=== PATIENT | female | born 1940 | race Caucasian/White ===

== ENCOUNTER 2018-12-14 09:30 | Inpatient (IN) | payer MEDICARE, BC ==
[2018-12-13 12:37] VITALS: Ht 153.7 cm; Wt 47.7 kg
[~2018-12-14] VITALS: Ht 153.7 cm; Wt 47.7 kg
[2018-12-14] VITALS (30 sets, daily range): BP systolic 133–167; BP diastolic 71–88; PULSE 63–94; RESP 0–27
[~2018-12-14 09:30] MED LIST: LACTATED RINGER'S 1,000 ML IV* SCH; VANCOMYCIN 1 GM (PMX) 250 ML IVPB ONE
[2018-12-14] MEDS ORDERED: DOCU-144 PO (10:23)
[2018-12-14] MEDS ORDERED: ATOR10TA65 PO (10:24)
[2018-12-14] MEDS ORDERED: ESOM10SU PO (10:25)
[2018-12-14] MEDS ORDERED: LORA1TAB PO (10:26)
[2018-12-14] MEDS ORDERED: ABCC1C PO (10:26)
[2018-12-14] MEDS ORDERED: PROP20TA4 PO (10:27)
--- NOTE | 2018-12-14 10:45 | PREAC ---
Date/Time of Note Date/Time of Note DATE: 12/14/18 TIME: 10:42 Anesthesia Eval and Record Evaluation Time Pre-Procedure Interview DATE: 12/14/18 TIME: 10:42 Age 78 Sex female NPO: 8 hrs Preoperative diagnosis l4 to S1 right side decompression and discectomy Planned procedure l4 to S1 right side decompression and discectomy Past Medical History Past Medical History: Includes Cardio: HTN, Dyslipidemia GI: GERD Psych: Anxiety Surgery & Anesthesia Issues No known issue Meds Anticoagulation: No Beta Joseline within 24 hr: Yes Reported Medications Propranolol Hcl* (Propranolol Hcl*) 20 Mg Tablet, 20 MG PO BID, TAB 12/14/18 Xblsxollcfqju-Hmvdtjperj-Splpedsb-Codeine* (Fioricet w/Codeine*) [id number] Cap, 1 CAP PO Q4H PRN for HEADACHE, CAP 12/14/18 Lorazepam* (Lorazepam*) 1 Mg Tablet, 1 MG PO DAILY PRN for ANXIETY, #30 TAB 12/14/18 Esomeprazole Mag Trihydrate (Nexium Packet) 10 Mg Suspdr.pkt, 10 MG PO DAILY, #30 PACKET 12/14/18 Atorvastatin Calcium (Atorvastatin Calcium) 10 Mg Tablet, 10 MG PO QHS, #30 TAB 12/14/18 Docusate Sodium* (Colace*) 100 Mg Capsule, 100 MG PO BID PRN for CONSTIPATION, #60 CAP 12/14/18 Discontinued Reported Medications Sennosides* (Senna Lax*) Unknown Strength Tablet, PO DAILY, TAB 12/13/18 Unexhqivsv-Wwgxgghtkzhkq-Gkkfaetm* (Fioricet*) 50-300-40 Mg Capsule, 1 CAP PO Q4H PRN for MIGRAINES, CAP 12/13/18 Esomeprazole Mag Trihydrate (Nexium) Unknown Strength Capsule.dr, PO DAILY, #30 CAP 12/13/18 Simvastatin* (Zocor*) 40 Mg Tablet, 40 MG PO DAILY 10/09/12 Ranitidine Hcl* (Zantac*) 300 Mg Tab, 300 MG PO BID 10/09/12 Propranolol Hcl* (Inderal*) 20 Mg Tab, 20 MG PO BID 10/09/12 Current Medications Lactated Ringer's 1,000 ml @ 0 mls/hr Q0M IV* ; Start 12/14/18 at 08:00; Stop 12/14/18 at 16:00 Meds reviewed: Yes Allergies Coded Allergies: Penicillins (Verified Allergy, Severe, RASH HIVES DIFFCULTY BREATHING , 12/14/18) benzalkonium chloride (Verified Allergy, Unknown, 12/13/18) codeine (Verified Allergy, Unknown, 12/13/18) gramicidin D (Verified Allergy, Unknown, 12/13/18) morphine (Verified Allergy, Unknown, 12/13/18) neomycin sulfate (Verified Allergy, Unknown, 12/13/18) polymyxin B (Verified Allergy, Unknown, 12/13/18) polymyxin B sulfate (Verified Allergy, Unknown, 12/13/18) aspirin (Verified Adverse Reaction, Unknown, 12/13/18) Allergies Reviewed: Yes Labs/Studies Labs Reviewed: Reviewed by anesthesiologist test: N/A Pre-procedure Exam Last vitals Vital Signs Date Temp Pulse Resp B/P (MAP) Pulse Ox O2 O2 Flow FiO2 Time Delivery Rate 12/14/18 98.0 63 16 162/71 100 Room Air 10:22 (101) Airway: Adequate mouth opening, Adequate thyromental dist Mallampati: Mallampati IV Teeth: Normal Lung: Normal Heart: Normal ASA Physical Status ASA physical status: 3 Emergency: None Pre-operative Attestations Prior to commencing anesthesia and surgery, the patient was re-evaluated, there was verification of: *The patient's identity *The results of appropriate recent lab work and preoperative vital signs *The above evaluation not changing prior to induction *Anesthetic plan, risk benefits, alternative and complications discussed with patient/family; questions answered; patient/family understands, accepts and wishes to proceed. MORENO THORNTON DO Dec 14, 2018 10:45
[2018-12-14] MEDS ORDERED: MIDAZOLAM 1 MG/ML 2 ML INJ ONE (10:46)
[2018-12-14] MEDS ORDERED: ROCURONIUM 50 MG INJ ONE (10:46)
[2018-12-14] MEDS ORDERED: ETOMIDATE 20 MG INJ ONE (10:46)
[2018-12-14] MEDS ORDERED: LIDOCAINE 2% (SDV) 5 ML INJ ONE (10:46)
[2018-12-14] MEDS ORDERED: SUCCINYLCHOLINE CHLORIDE 100 MG/5 ML SYG IV ONE (10:46)
[2018-12-14] MEDS ORDERED: hydrALAzine 20 MG INJ IV PRN (11:00)
[2018-12-14] MEDS ORDERED: LABETALOL HCL 20MG INJ IV PRN (11:00)
[2018-12-14] MEDS ORDERED: ONDANSETRON 4 MG INJ IV PRN (11:00)
[2018-12-14] MEDS ORDERED: MEPERIDINE 25 MG INJ IV PRN (11:00)
[2018-12-14] MEDS ORDERED: HYDROmorphONE 1 MG/5 ML IV SYRINGE IV PRN (11:00)
--- NOTE | 2018-12-14 11:18 | HPN ---
Date/Time of Note Date/Time of Note DATE: 12/14/18 TIME: 11:18 Interval H&P Admission Note Pt. seen H&P reviewed: No system changes KIERA LOGAN MD Dec 14, 2018 11:18
--- NOTE | 2018-12-14 11:25 | PAC ---
Date/Time of Note Date/Time of Note DATE: 12/14/18 TIME: 11:24 Post-Anesthesia Notes Post-Anesthesia Note Last documented vital signs Vital Signs Date Temp Pulse Resp B/P (MAP) Pulse Ox O2 O2 Flow FiO2 Time Delivery Rate 12/14/18 98.4 75 18 113/65 100 Room Air 1125 Activity: WNL Respiratory function: WNL Cardiovascular function: WNL Mental status: Baseline Pain reasonably controlled: Yes Hydration appropriate: Yes Nausea/Vomiting absent: Yes MORENO THORNTON DO Dec 14, 2018 11:25
[2018-12-14] MEDS ORDERED: SURGIFOAM POWDER 1 GM KIT ONE (11:47)
[2018-12-14] MEDS ORDERED: BUPIVACAINE 0.5%/EPI (SDV) 30 ML INJ ONE (11:47)
[2018-12-14] MEDS ORDERED: THROMBIN (BOVINE) 5,000 UNIT VIAL TP ONE (11:47)
[2018-12-14] MEDS ORDERED: CA CHLORIDE 10% 10 ML SYRINGE ONE (11:48)
[2018-12-14] MEDS ORDERED: HEPARIN 1000 UNITS/ML 10 ML INJ ONE (11:48)
[2018-12-14] MEDS ORDERED: VANCOMYCIN 1 GM INJ ONE (11:49)
[2018-12-14] MEDS ORDERED: DIPHENHYDRAMINE 25 MG CAP PO PRN (12:00)
[2018-12-14] MEDS ORDERED: BISACODYL 10 MG SUPP PR PRN (12:00)
[2018-12-14] MEDS ORDERED: NALOXONE (0.4 MG/ML) INJ IV PRN (12:00)
[2018-12-14] MEDS ORDERED: CEPASTAT LOZENGE MT PRN (12:00)
[2018-12-14] MEDS ORDERED: traMADol 50 MG TAB PO PRN (12:00)
[2018-12-14] MEDS ORDERED: AL HYDROX/MG HYDROX/SIMETH 30 ML CUP PO PRN (12:00)
[2018-12-14] MEDS ORDERED: MEPERIDINE 25 MG INJ IM PRN ×2 (12:00→13:04)
[2018-12-14] MEDS ORDERED: DIPHENHYDRAMINE 50 MG INJ IV PRN (12:00)
[2018-12-14] MEDS ORDERED: DEXAMETHASONE 4 MG/ML 5 ML INJ ONE (14:00)
[2018-12-14] MEDS ORDERED: ONDANSETRON 4 MG INJ ONE (14:00)
--- NOTE | 2018-12-14 14:43 | HPN ---
Date/Time of Note Date/Time of Note DATE: 12/14/18 TIME: 14:43 Interval H&P Admission Note Pt. seen H&P reviewed: No system changes KIERA LOGAN MD Dec 14, 2018 14:43
--- NOTE | 2018-12-14 14:45 | SIPON ---
Date/Time of Note Date/Time of Note DATE: 12/14/18 TIME: 14:43 Operative Report Preoperative Diagnosis Lumbar stenosis Postoperative Diagnosis Lumbar stenosis Operation/Procedure Performed Lumbar decompression Surgeon see signature line shipping assistant Veronika george Anesthesia: general Estimated blood loss: 10 - 50 ml's Transfusion Required none Specimen Disc Grafts/Implants none Complications none KIERA LOGAN MD Dec 14, 2018 14:45
--- NOTE | 2018-12-14 14:53 | PAC ---
Date/Time of Note Date/Time of Note DATE: 12/14/18 TIME: 14:52 Post-Anesthesia Notes Post-Anesthesia Note Last documented vital signs Vital Signs Date Temp Pulse Resp B/P (MAP) Pulse Ox O2 O2 Flow FiO2 Time Delivery Rate 12/14/18 98.5 80 18 130/65 100 1452 12/14/18 63 16 162/71 100 Room Air 10:22 (101) Activity: WNL Respiratory function: WNL Cardiovascular function: WNL Mental status: Baseline Pain reasonably controlled: Yes Hydration appropriate: Yes Nausea/Vomiting absent: Yes MORENO THORNTON DO Dec 14, 2018 14:53
[2018-12-14] MEDS: HYDROmorphONE 1 MG/5 ML IV SYRINGE IV PRN ×2 (15:25→15:40)
[2018-12-14] MEDS ORDERED: hydrALAzine 20 MG INJ ONE (15:32)
--- NOTE | 2018-12-14 15:56 | OPR ---
DATE OF OPERATION: 12/14/2018 PREOPERATIVE DIAGNOSES: 1. Degenerative scoliosis. 2. Right L4 to L5 and L5 to S1 stenosis. 3. Right paracentral herniation at L4 to L5. 4. Right far lateral herniation at L4 to L5. 5. Right L4 foraminal stenosis. 6. Radiculopathy. POSTOPERATIVE DIAGNOSES: 1. Degenerative scoliosis. 2. Right L4 to L5 and L5 to S1 stenosis. 3. Right paracentral herniation at L4 to L5. 4. Right far lateral herniation at L4 to L5. 5. Right L4 foraminal stenosis. 6. Radiculopathy. PROCEDURES: 1. Right L4 to L5 and L5 to S1 decompression with decompression of L4, L5, S1 nerve roots. 2. Right L4 to L5 lumbar microdiskectomy. 3. Right L4 to L5 extraforaminal lumbar microdiskectomy. 4. Right L4 extraforaminal decompression with Baxano. 5. Use of operative microscope. 6. Use of C-arm fluoroscopy with interpretation without radiologist present. 7. Intraoperative neuromonitoring. PRIMARY SURGEON: Stevie Umanzor MD SLOT SHIFT MANAGER: BRISEIDA Zavala FINDINGS: Neuromonitoring at the start of the case revealed right L5 amplitude down 30%, right S1 do wn 20%. At the end of the case, nerve signals returned to normal. The patient had stenosis at L4 to L5 and L5 to S1. There was a paracentral herniation at L4 to L5 and large far lateral extrusion at L4 to L5. There is also foraminal stenosis due to degenerative scoliosis. ESTIMATED BLOOD LOSS: 50 mL. DRAINS: None. SPECIMENS: L4 to L5 disk. COMPLICATIONS OF PROCEDURES: None. ANESTHESIOLOGIST: Tank Carrizales DO TYPE OF ANESTHESIA: General. INDICATIONS FOR PROCEDURE: This is an 78-year-old female with degenerative lumbar scoliosis with petey nosis. She failed nonoperative measures; therefore I recommended that she undergo the above procedur e due to her radicular complaints. She failed nonoperative measures and wished to proceed with the a louie surgery. DESCRIPTION OF PROCEDURE IN DETAIL: The patient was identified in the preoperative holding area, giv en vancomycin antibiotic, taken to the operating room, where she was successfully placed under genera l anesthesia. Neuromonitoring were placed. Sequential devices were applied. Remote intraoperative neuromonitoring was performed by Dr. Bennett from 11:26 until 14:40 to include SSEP, MEP and EMG pe rformed by [employer]. The patient was placed in the operative table in prone position over a Marlon frame. All bony prominences were well padded. The back was then prepped and draped in usual fashion. Using the sterile fluoroscope, I identified the incision site. I anesthetized skin with Ma rcaine and epinephrine. Incision was then made over the L4 to L5 and L5 to S1 levels. Incision was taken down to dorsal fascia, which was incised with Bovie cautery. I then subperiosteally dissected the right L4, L5 and S1 lamina. I confirmed the levels with the C-arm fluoroscopy. Microscope was t hen brought in. I performed a right L4 hemilaminotomy and a right L5 hemilaminectomy. I removed the ligamentum flavum. I decompressed the canal as well as the right L4, L5 and S1 nerve roots. At L4 to L5, my cosmetic sales assistant retracted neural elements medially. I performed an annulotomy followed by diskec cristina. The patient had a central and paracentral herniation. I then performed an extraforaminal disk ectomy as the patient had a large extraforaminal component which was removed. I then utilized the MENA360 10 mm shaver under C-arm guidance with neuromonitoring to complete the right extraforaminal deco mpression of the L4 nerve root. Once this was done, all nerve signals returned to normal. The L4 si gnal even had cleaner and trimmer signals. I then irrigated the wound. Hemostasis was achieved with Surgifoam a nd bipolar cautery. Wound was dry and therefore, I elected not to place a drain. The retractors wer e removed. I closed deep fascia with #1 Vicryl stitch. I closed subcutaneous tissue with 2-0 Vicryl suture. A 4-0 Monocryl closure was then performed. Dermabond and sterile dressings were then appli ed. The patient was awakened from anesthesia and taken to the recovery room in stable condition. La p, sponge and instrument counts were correct x2. There were no apparent complications during the pro cedure. The patient will be admitted to the [facility] for routine postoperative care to include pain co ntrol, neurovascular checks, antibiotics and physical therapy. Dictated By: STEVIE LAZO/ALLAN Conf#: [id number] DID#: [id number] CC: LATRELL HARRELL MD;*EndCC*
[2018-12-14] MEDS ORDERED: FENTAnyl 50 MCG/ML VIAL ONE (17:04)
[2018-12-14] MEDS: MEPERIDINE 50 MG INJ IM PRN ×2 (17:10→21:14)
[2018-12-14] MEDS: D5W-0.45 NACL + KCL 20 MEQ 1,000 ML IV SCH ×2 (17:11→21:31)
[2018-12-14] MEDS ORDERED: ESOMEPRAZOLE MAG TRIHYDRATE 10 MG PO SCH (18:00)
--- NOTE | 2018-12-14 18:03 | CONS ---
Assessment/Plan Assessment/Plan Assessment/Plan (Daily) Consult dict 1- post op lumbar back surg 2- hx hyperlipidemia, statin cont 3- hx migraine crawford, will cont beta joie 4- hx peptic ulcer dz, ppi cont Will follow Consultation Date/Type/Reason Admit Date/Time Dec 14, 2018 at 09:37 Date/Time of Note DATE: 12/14/18 TIME: 18:02 Past Medical History Home Meds Reported Medications Propranolol Hcl* (Propranolol Hcl*) 20 Mg Tablet, 20 MG PO BID, TAB 12/14/18 Uajzipmveuoym-Xnqkkrzvjc-Tuhajfcd-Codeine* (Fioricet w/Codeine*) [id number]-30MG Cap, 1 CAP PO Q4H PRN for HEADACHE, CAP 12/14/18 Lorazepam* (Lorazepam*) 1 Mg Tablet, 1 MG PO DAILY PRN for ANXIETY, #30 TAB 12/14/18 Esomeprazole Mag Trihydrate (Nexium Packet) 10 Mg Suspdr.pkt, 10 MG PO DAILY, #30 PACKET 12/14/18 Atorvastatin Calcium (Atorvastatin Calcium) 10 Mg Tablet, 10 MG PO QHS, #30 TAB 12/14/18 Docusate Sodium* (Colace*) 100 Mg Capsule, 100 MG PO BID PRN for CONSTIPATION, #60 CAP 12/14/18 Discontinued Reported Medications Sennosides* (Senna Lax*) Unknown Strength Tablet, PO DAILY, TAB 12/13/18 Dzkirvyfbd-Tlokqqfsqodiv-Vmpkkxln* (Fioricet*) 50-300-40 Mg Capsule, 1 CAP PO Q4H PRN for MIGRAINES, CAP 12/13/18 Esomeprazole Mag Trihydrate (Nexium) Unknown Strength Capsule.dr, PO DAILY, #30 CAP 12/13/18 Simvastatin* (Zocor*) 40 Mg Tablet, 40 MG PO DAILY 10/09/12 Ranitidine Hcl* (Zantac*) 300 Mg Tab, 300 MG PO BID 10/09/12 Propranolol Hcl* (Inderal*) 20 Mg Tab, 20 MG PO BID 10/09/12 Medications Current Medications Hydromorphone HCl (Dilaudid) 0.2 mg PACU PRN IV MILD PAIN 1-3 Last administered on 12/14/18at 16:09; Admin Dose 0.2 MG; Start 12/14/18 at 11:00; Stop 12/14/18 at 1 9:00 Hydromorphone HCl (Dilaudid) 0.4 mg PACU PRN IV MOD PAIN 4-6 Last administered on 12/14/18at 15:40; Admin Dose 0.4 MG; Start 12/14/18 at 11:00; Stop 12/14/18 at 19:00 Ondansetron HCl (Zofran Inj) 4 mg PACU ORDER PRN IV NAUSEA/VOMITING Last administered on 12/14/18at 15:07; Admin Dose 4 MG; Start 12/14/18 at 11:00 Labetalol HCl (Labetalol) 5 mg PACU ORDER PRN IV HIGH BLOOD PRESSURE; Start 12/14/18 at 11:00; Stop 12/14/18 at 19:00 Hydralazine HCl (Apresoline) 5 mg PACU ORDER PRN IV HIGH BLOOD PRESSURE; Start 12/14/18 at 11:00; Stop 12/14/18 at 19:00 Meperidine HCl (Demerol) 25 mg PACU ORDER PRN IV .RIGORS; Start 12/14/18 at 11:00; Stop 12/14/18 at 19:00 Potassium Chloride/Dextrose/ Sod Cl 1,000 ml @ 100 mls/hr Q10H IV Last administered on 12/14/18at 17:11; Admin Dose 100 MLS/HR; Start 12/14/18 at 11:31 Tramadol HCl (Ultram) 50 mg Q4H PRN PO .PAIN 1-5; Start 12/14/18 at 12:00 Tramadol HCl (Ultram) 100 mg Q4H PRN PO .PAIN 6-10; Start 12/14/18 at 12:00 Vancomycin HCl 250 ml @ 125 mls/hr Q12H IVPB ; Start 12/14/18 at 18:00; Stop 12/15/18 at 07:59 Ondansetron HCl (Zofran Inj) 4 mg Q6H PRN IV NAUSEA/VOMITING; Start 12/14/18 at 12:00 Bisacodyl (Dulcolax Supp) 10 mg DAILY PRN [place] .CONSTIPATION; Start 12/14/18 at 12:00 Docusate Sodium (Colace) 100 mg BID PO ; Start 12/14/18 at 21:00 Al Hydrox/Mg Hydrox/Simethicone (Mag-Al Plus) 15 ml Q6H PRN PO .CONSTIPATION/DYSPEPSIA; Start 12/14/18 at 12:00 Acetaminophen (Tylenol Tab) 650 mg Q4H PRN PO CRAWFORD OR TEMP GREATER THAN 101.3F; Start 12/14/18 at 12:00 Phenol (Cepastat Lozenge) 1 lozenge PRN PRN [place] .SORE THROAT; Start 12/14/18 at 12:00 Diphenhydramine HCl (Benadryl) 25 mg Q6H PRN PO .ITCHING; Start 12/14/18 at 12:00 Diphenhydramine HCl (Benadryl) 25 mg Q6H PRN IV .ITCHING; Start 12/14/18 at 12:00 Naloxone HCl (Narcan) 0.2 mg Q2M PRN IV .RR 8 BREATHS/MIN OR LESS; Start 12/14/18 at 12:00 Meperidine HCl (Demerol) 12.5 mg Q4H PRN IM SEVERE PAIN LEVEL 7-10 Last administered on 12/14/18at 17:10; Admin Dose 12.5 MG; Start 12/14/18 at 16:59 Allergies: Coded Allergies: Penicillins (Verified Allergy, Severe, RASH HIVES DIFFCULTY BREATHING , 12/14/18) benzalkonium chloride (Verified Allergy, Unknown, 12/13/18) codeine (Verified Allergy, Unknown, 12/13/18) gramicidin D (Verified Allergy, Unknown, 12/13/18) morphine (Verified Allergy, Unknown, 12/13/18) neomycin sulfate (Verified Allergy, Unknown, 12/13/18) polymyxin B (Verified Allergy, Unknown, 12/13/18) polymyxin B sulfate (Verified Allergy, Unknown, 12/13/18) aspirin (Verified Adverse Reaction, Unknown, 12/13/18) Social History Smoking Status: Never smoker Exam/Review of Systems Exam Vitals Vital Signs Date Temp Pulse Resp B/P (MAP) Pulse Ox O2 O2 Flow FiO2 Time Delivery Rate 12/14/18 Nasal 2.0 17:36 Cannula 12/14/18 75 12 140/74 100 16:05 (96) 12/14/18 98.5 14:50 Medications Medication Current Medications Hydromorphone HCl (Dilaudid) 0.2 mg PACU PRN IV MILD PAIN 1-3 Last administered on 12/14/18at 16:09; Admin Dose 0.2 MG; Start 12/14/18 at 11:00; Stop 12/14/18 at 19:00 Hydromorphone HCl (Dilaudid) 0.4 mg PACU PRN IV MOD PAIN 4-6 Last administered on 12/14/18at 15:40; Admin Dose 0.4 MG; Start 12/14/18 at 11:00; Stop 12/14/18 at 19:00 Ondansetron HCl (Zofran Inj) 4 mg PACU ORDER PRN IV NAUSEA/VOMITING Last a dministered on 12/14/18at 15:07; Admin Dose 4 MG; Start 12/14/18 at 11:00 Labetalol HCl (Labetalol) 5 mg PACU ORDER PRN IV HIGH BLOOD PRESSURE; Start 12/14/18 at 11:00; Stop 12/14/18 at 19:00 Hydralazine HCl (Apresoline) 5 mg PACU ORDER PRN IV HIGH BLOOD PRESSURE; Start 12/14/18 at 11:00; Stop 12/14/18 at 19:00 Meperidine HCl (Demerol) 25 mg PACU ORDER PRN IV .RIGORS; Start 12/14/18 at 11: 00; Stop 12/14/18 at 19:00 Potassium Chloride/Dextrose/ Sod Cl 1,000 ml @ 100 mls/hr Q10H IV Last administered on 12/14/18at 17:11; Admin Dose 100 MLS/HR; Start 12/14/18 at 11:31 Tramadol HCl (Ultram) 50 mg Q4H PRN PO .PAIN 1-5; Start 12/14/18 at 12:00 Tramadol HCl (Ultram) 100 mg Q4H PRN PO .PAIN 6-10; Start 12/14/18 at 12:00 Vancomycin HCl 250 ml @ 125 mls/hr Q12H IVPB ; Start 12/14/18 at 18:00; Stop 12/15/18 at 07:59 Ondansetron HCl (Zofran Inj) 4 mg Q6H PRN IV NAUSEA/VOMITING; Start 12/14/18 at 12:00 Bisacodyl (Dulcolax Supp) 10 mg DAILY PRN [place] .CONSTIPATION; Start 12/14/18 at 12:00 Docusate Sodium (Colace) 100 mg BID PO ; Start 12/14/18 at 21:00 Al Hydrox/Mg Hydrox/Simethicone (Mag-Al Plus) 15 ml Q6H PRN PO .CONSTIPATION/DYSPEPSIA; Start 12/14/18 at 12:00 Acetaminophen (Tylenol Tab) 650 mg Q4H PRN PO CRAWFORD OR TEMP GREATER THAN 101.3F; Start 12/14/18 at 12:00 Phenol (Cepastat Lozenge) 1 lozenge PRN PRN [place] .SORE THROAT; Start 12/14/18 at 12:00 Diphenhydramine HCl (Benadryl) 25 mg Q6H PRN PO .ITCHING; Start 12/14/18 at 12:00 Diphenhydramine HCl (Benadryl) 25 mg Q6H PRN IV .ITCHING; Start 12/14/18 at 12:00 Naloxone HCl (Narcan) 0.2 mg Q2M PRN IV .RR 8 BREATHS/MIN OR LESS; Start 12/14/18 at 12:00 Meperidine HCl (Demerol) 12.5 mg Q4H PRN IM SEVERE PAIN LEVEL 7-10 Last administered on 12/14/18at 17:10; Admin Dose 12.5 MG; Start 12/14/18 at 16:59 LATRELL HARRELL MD Dec 14, 2018 18:03
[2018-12-14] MEDS: VANCOMYCIN 1 GM (PMX) 250 ML IVPB SCH (18:13)
[2018-12-14] MEDS: traMADol 50 MG TAB PO PRN ×2 (18:32→23:21)
--- NOTE | 2018-12-14 18:53 | CONS ---
DATE OF ADMISSION: 12/14/2018 DATE OF CONSULTATION: Dear Dr. Umanzor: Thank you very much for allowing me to evaluate this 78-year-old female who just underwent lumbar jorge k surgery. HISTORICAL EVENTS: As you well know, this patient has had low back pain for many years, particularly involving the right side with radiating pain to the right groin and right leg. She was evaluated by pain management and only got temporary relief. Because of continued pain, it was felt that surgical intervention is appropriate. Postoperatively, she is reasonably comfortable without cough, wheezing , shortness of breath, nausea, vomiting or abdominal pain and just has mild back discomfort. PAST MEDICAL HISTORY: History of hepatitis, peptic ulcer disease, migraine headaches, hyperlipidemia , history of bronchitis, post-cholecystectomy, appendectomy, antrectomy and vagotomy for peptic ulcer disease, osteoporosis, history of gout, hyperlipidemia, without history of diabetes or coronary marc ry disease. MEDICATIONS: 1. Propranolol 20 mg b.i.d. 2. Lipitor 20 mg per day. 3. Fioricet p.r.n. 4. Ativan 1 mg at bedtime. 5. Nexium 20 mg daily. 5. Vitamin D 1000 units per day. 6. Multivitamins. ALLERGIES: INCLUDE: 1. VICODIN 2. TETRACYCLINE. 3. PERCODAN. 4. PERCOCET 5. PENICILLIN. 6. NEOSPORIN 7. MORPHINE. 8. KEFLEX. 9. CODEINE. 10. AMOXICILLIN. SOCIAL HISTORY: Former smoker. FAMILY HISTORY: Positive for coronary artery disease, pneumonia, hypertension and breast cancer. PHYSICAL EXAMINATION: GENERAL: Vesper female in no acute distress. VITAL SIGNS: BP 122/80, pulse 70, respirations were 18. She was afebrile. EYES: Extraocular muscles were full. NOSE, MOUTH, AND THROAT: Normal. NECK: Supple. There was no jugular venous distention, thyroid enlargement or adenopathy. LUNGS: Clear. HEART: Rhythm regular. ABDOMEN: Nontender. Liver and spleen are not palpable. No mass or tenderness were noted. EXTREMITIES: No edema. Calves nontender. Pulses 2+. IMPRESSION: 1. Stable postop lumbar back surgery. 2. History of migraine headaches. We will continue beta joie. 3. History of peptic disease. We will continue PPI. 4. We will follow daily for signs and symptoms of thromboembolic disease. Dictated By: LATRELL HARRELL MD MR/ALLAN Conf#: [id number] DID#: [id number] CC: KIERA UMANZOR MD;*[facility]*
[2018-12-14] MEDS: ATORVASTATIN 10 MG TAB PO SCH (21:14)
[2018-12-14] MEDS: DOCUSATE SODIUM 100 MG CAP PO SCH (21:14)
[2018-12-14] MEDS: PROPRANOLOL 20 MG TAB PO SCH (21:28)
[2018-12-15] MEDS: LORAZEPAM 1 MG TAB PO PRN ×2 (00:19→21:16)
[2018-12-15 02:25] VITALS: BP 153/74; PULSE 84; RESP 17
[2018-12-15] MEDS: ACETAMINOPHEN 325 MG TAB PO PRN (05:38)
[2018-12-15] MEDS: VANCOMYCIN 1 GM (PMX) 250 ML IVPB SCH (05:38)
[2018-12-15] MEDS: ONDANSETRON 4 MG INJ IV PRN ×3 (07:01→13:55)
[2018-12-15 07:20] VITALS: BP 147/74; PULSE 81; RESP 18
[2018-12-15] MEDS: D5W-0.45 NACL + KCL 20 MEQ 1,000 ML IV SCH (07:31)
[2018-12-15] MEDS ORDERED: METOCLOPRAMIDE 10 MG INJ IV PRN ×2 (08:10→20:10)
[2018-12-15] MEDS ORDERED: ACET/BUTAL/CAFF/CODEINE CAP PO PRN (08:30)
--- NOTE | 2018-12-15 08:32 | CONS ---
Assessment/Plan Assessment/Plan Assessment/Plan (Daily) 1. Post op lumbar spine surg, doing well 2. N and V, sec to anesthesia, ?? related to vanco (I stopped for now), and added reglan and protonix (received min pain meds post op), may want to resume vanco once n and v has resolved 3. Low Mag, will replete Consultation Date/Type/Reason Admit Date/Time Dec 14, 2018 at 09:37 Initial Consult Date Date/Time of Note DATE: 12/15/18 TIME: 08:30 Detailed Summary Respiratory: No cough, No shortness of breath Cardiovascular: No chest pain Gastrointestinal: other (N and V last ngiht with mild abd bloating) Genitourinary: no complaints Musculoskeletal: back pain (mild-mod) Exam/Review of Systems Exam Vitals Vital Signs Date Temp Pulse Resp B/P (MAP) Pulse Ox O2 O2 Flow FiO2 Time Delivery Rate 12/15/18 98.2 81 18 147/74 99 Room Air 07:20 (98) 12/14/18 2.0 17:36 Intake and Output 12/14/18 12/14/18 12/15/18 1515:00 23:00 07:00 IntakeIntake Total 1500 ml 590 ml 750 ml OutputOutput Total 50 ml BalanceBalance 1450 ml 590 ml 750 ml Neck: No jvd Respiratory: clear to auscultation Cardiovascular: regular rate and rhythm Gastrointestinal: soft Extremities: No edema, No tenderness Results Result Diagram: 12/15/18 0436 12/15/18 0436 Results 24hrs Laboratory Tests Test 12/15/18 04:36 12/15/18 07:13 White Blood Count 6.8 Red Blood Count 3.44 L Hemoglobin 11.3 L Hematocrit 34.1 L Mean Corpuscular Volume 99.1 Mean Corpuscular Hemoglobin 32.8 Mean Corpuscular Hemoglobin Concent 33.1 Red Cell Distribution Width 12.6 Platelet Count 133 L Mean Platelet Volume 10.7 H Immature Granulocytes % 0.400 Neutrophils % 77.4 H Lymphocytes % 11.6 L Monocytes % 10.1 Eosinophils % 0.1 Basophils % 0.4 Nucleated Red Blood Cells % 0.0 Immature Granulocytes # 0.030 Neutrophils # 5.3 Lymphocytes # 0.8 Monocytes # 0.7 Eosinophils # 0.0 Basophils # 0.0 Nucleated Red Blood Cells # 0.0 Sodium Level 137 Potassium Level 4.2 Chloride Level 103 Carbon Dioxide Level 30 Anion Gap 4 L Blood Urea Nitrogen 16 Creatinine 0.71 Est Glomerular Filtrat Rate mL/min Glucose Level 134 Calcium Level 9.1 Magnesium Level 1.4 L Lab Scanned Report REFERENCE LAB Medications Medication Current Medications Potassium Chloride/Dextrose/ Sod Cl 1,000 ml @ 100 mls/hr Q10H IV Last administered on 12/14/18at 17:11; Admin Dose 100 MLS/HR; Start 12/14/18 at 11:31 Tramadol HCl (Ultram) 50 mg Q4H PRN PO .PAIN 1-5; Start 12/14/18 at 12:00 Tramadol HCl (Ultram) 100 mg Q4H PRN PO .PAIN 6-10 Last administered on 12/14/18at 23:21; Admin Dose 100 MG; Start 12/14/18 at 12:00 Ondansetron HCl (Zofran Inj) 4 mg Q6H PRN IV NAUSEA/VOMITING Last administered on 12/15/18at 07:01; Admin Dose 4 MG; Start 12/14/18 at 12:00 Bisacodyl (Dulcolax Supp) 10 mg DAILY PRN [place] .CONSTIPATION; Start 12/14/18 at 12:00 Docusate Sodium (Colace) 100 mg BID PO Last administered on 12/14/18at 21:14; Admin Dose 100 MG; Start 12/14/18 at 21:00 Al Hydrox/Mg Hydrox/Simethicone (Mag-Al Plus) 15 ml Q6H PRN PO .CONSTIPATION/DYSPEPSIA; Start 12/14/18 at 12:00 Acetaminophen (Tylenol Tab) 650 mg Q4H PRN PO CRAWFORD OR TEMP GREATER THAN 101.3F; Start 12/14/18 at 12:00 Phenol (Cepastat Lozenge) 1 lozenge PRN PRN MT .SORE THROAT; Start 12/14/18 at 12:00 Diphenhydramine HCl (Benadryl) 25 mg Q6H PRN PO .ITCHING; Start 12/14/18 at 12:00 Diphenhydramine HCl (Benadryl) 25 mg Q6H PRN IV .ITCHING; Start 12/14/18 at 12:00 Naloxone HCl (Narcan) 0.2 mg Q2M PRN IV .RR 8 BREATHS/MIN OR LESS; Start 12/14/18 at 12:00 Meperidine HCl (Demerol) 12.5 mg Q4H PRN IM SEVERE PAIN LEVEL 7-10 Last administered on 12/14/18at 21:14; Admin Dose 12.5 MG; Start 12/14/18 at 16:59 Atorvastatin Calcium (Lipitor) 10 mg QHS PO Last administered on 12/14/18at 21:14; Admin Dose 10 MG; Start 12/14/18 at 21:00 Lorazepam (Ativan) 1 mg BID PRN PO ANXIETY Last administered on 12/15/18at 00:19; Admin Dose 1 MG; Start 12/14/18 at 18:00 Propranolol HCl (Inderal) 20 mg BID PO Last administered on 12/14/18at 21:28; Admin Dose 20 MG; Start 12/14/18 at 21:00 Acetam/Butalbital/ Caffeine/Codeine (Fioricet/ Codeine) 1 cap Q4H PRN PO HEADACHE; Start 12/15/18 at 08:30 Miscellaneous Information 10 mg DAILY PO ; Start 12/14/18 at 18:00; Status UNV Pantoprazole (Protonix Iv) 40 mg BID@06,18 IV ; Start 12/15/18 at 08:30; Status UNV Magnesium Sulfate 3 gm/Dextrose 106 ml @ 35.333 mls/ hr ONCE ONCE IVPB ; Start 12/15/18 at 10:00; Stop 12/15/18 at 12:59 Metoclopramide HCl (Reglan) 5 mg Q6H PRN IV NAUSEA; Start 12/15/18 at 08:10 LATRELL HARRELL MD Dec 15, 2018 08:32
[2018-12-15] MEDS: DOCUSATE SODIUM 100 MG CAP PO SCH ×2 (09:00→20:27)
[2018-12-15] MEDS: PROPRANOLOL 20 MG TAB PO SCH ×2 (09:00→20:26)
[2018-12-15] MEDS: SOD CHLORIDE 0.9% 1,000 ML IV SCH ×2 (09:37→21:17)
[2018-12-15] MEDS: PANTOPRAZOLE 40 MG INJ IV SCH ×2 (09:37→18:00)
[2018-12-15] MEDS: MEPERIDINE 50 MG INJ IM PRN ×3 (09:57→20:27)
[2018-12-15] MEDS ORDERED: MAGNESIUM SULFATE 3 GM in DEXTROSE 5% 100 ML IVPB ONE (10:00)
--- NOTE | 2018-12-15 11:45 | PN ---
Date/Time of Note Date/Time of Note DATE: 12/15/18 TIME: 11:44 Assessment/Plan Lines/Catheters IV Catheter Type (from Nrsg): Peripheral IV Barr in Place (from Nrsg): No Assessment/Plan Assessment/Plan Postop day 1 status post lumbar decompression. Patient has nausea likely due to medications. Has right leg pain which should improve with time. Given her significant allergies I will not place her on additional medications for the leg pain Subjective 24 Hr Interval Summary Complains of nausea and right leg pain Exam/Review of Systems Vital Signs Vitals Vital Signs Date Temp Pulse Resp B/P (MAP) Pulse Ox O2 O2 Flow FiO2 Time Delivery Rate 12/15/18 98.2 81 18 147/74 99 Room Air 07:20 (98) 12/14/18 2.0 17:36 Intake and Output 12/14/18 12/14/18 12/15/18 1515:00 23:00 07:00 IntakeIntake Total 1500 ml 590 ml 750 ml OutputOutput Total 50 ml BalanceBalance 1450 ml 590 ml 750 ml Exam Free Text/Dictation Intact strength Results Result Diagram: 12/15/18 0436 12/15/18 0436 KIERA LOGAN MD Dec 15, 2018 11:45
[2018-12-15 14:00] VITALS: BP 140/76; PULSE 84; RESP 18
[2018-12-15] MEDS: METOCLOPRAMIDE 10 MG INJ IV PRN (15:53)
[2018-12-15 19:45] VITALS: BP 149/67; PULSE 95; RESP 20
[2018-12-15] MEDS: ATORVASTATIN 10 MG TAB PO SCH (20:27)
[2018-12-16] VITALS: BP 126/66; PULSE 88; RESP 20
[2018-12-16] MEDS: ACETAMINOPHEN 325 MG TAB PO PRN ×3 (00:49→18:31)
[2018-12-16] MEDS: PANTOPRAZOLE 40 MG INJ IV SCH ×2 (05:26→18:20)
[2018-12-16] MEDS: MEPERIDINE 50 MG INJ IM PRN ×3 (05:29→21:45)
[2018-12-16] MEDS: SOD CHLORIDE 0.9% 1,000 ML IV SCH ×2 (05:53→14:57)
[2018-12-16] MEDS: METOCLOPRAMIDE 10 MG INJ IV PRN ×3 (07:39→21:40)
[2018-12-16 07:49] VITALS: BP 152/70; PULSE 84; RESP 18
[2018-12-16] MEDS ORDERED: DEXAMETHASONE 4 MG/ML 1 ML INJ IV ONE (08:00)
--- NOTE | 2018-12-16 08:00 | PN ---
Date/Time of Note Date/Time of Note DATE: 12/16/18 TIME: 07:59 Assessment/Plan Lines/Catheters IV Catheter Type (from Nrsg): Peripheral IV Barr in Place (from Nrsg): No Assessment/Plan Assessment/Plan Patient continues to have severe right leg pain. It is likely postsurgical however I recommend an MRI to rule out a disc extrusion. I will also give the patient 6 mg of IV Decadron to see if this helps with her leg pain as it could be due to inflammation from the surgery. Subjective 24 Hr Interval Summary Persistent right leg pain Exam/Review of Systems Vital Signs Vitals Vital Signs Date Temp Pulse Resp B/P (MAP) Pulse Ox O2 O2 Flow FiO2 Time Delivery Rate 12/16/18 98.5 84 18 152/70 95 07:49 (97) 12/16/18 Room Air 00:00 12/14/18 2.0 17:36 Intake and Output 12/15/18 12/15/18 12/16/18 1515:00 23:00 07:00 IntakeIntake Total 400 ml 1106 ml 1050 ml OutputOutput Total 250 ml BalanceBalance 150 ml 1106 ml 1050 ml Exam Free Text/Dictation Neuro intact Results Result Diagram: 12/16/18 0433 12/16/18 0433 KIERA LOGAN MD Dec 16, 2018 08:00
--- NOTE | 2018-12-16 08:08 | CONS ---
Assessment/Plan Assessment/Plan Assessment/Plan (Daily) 1. Post op lumbar back surgery, improving 2. N and V resolving on current regimen, PPI and Reglan 3. CRAWFORD, not new, Fioricet usually help, will order 4. Hypomag, resolved Consultation Date/Type/Reason Admit Date/Time Dec 14, 2018 at 09:37 Initial Consult Date Date/Time of Note DATE: 12/16/18 TIME: 08:06 Detailed Summary Respiratory: No cough Cardiovascular: No chest pain, No lightheadedness, No orthopenea Gastrointestinal: other (n and v much improved without abd pain) Musculoskeletal: back pain (moderate (better)) Neurologic: headache (mild) Exam/Review of Systems Exam Vitals Vital Signs Date Temp Pulse Resp B/P (MAP) Pulse Ox O2 O2 Flow FiO2 Time Delivery Rate 12/16/18 98.5 84 18 152/70 95 07:49 (97) 12/16/18 Room Air 00:00 12/14/18 2.0 17:36 Intake and Output 12/15/18 12/15/18 12/16/18 1515:00 23:00 07:00 IntakeIntake Total 400 ml 1106 ml 1050 ml OutputOutput Total 250 ml BalanceBalance 150 ml 1106 ml 1050 ml Neck: No jvd Respiratory: clear to auscultation Cardiovascular: regular rate and rhythm Gastrointestinal: soft Extremities: No edema, No tenderness Neurological: No focal weakness Results Result Diagram: 12/16/18 0433 12/16/18 0433 Results 24hrs Laboratory Tests Test 12/16/18 04:33 White Blood Count 7.3 Red Blood Count 3.24 L Hemoglobin 10.7 L Hematocrit 31.1 L Mean Corpuscular Volume 96.0 Mean Corpuscular Hemoglobin 33.0 Mean Corpuscular Hemoglobin Concent 34.4 Red Cell Distribution Width 12.5 Platelet Count 124 L Mean Platelet Volume 11.7 H Immature Granulocytes % 0.400 Neutrophils % 76.4 Lymphocytes % 14.2 L Monocytes % 8.8 Eosinophils % 0.1 Basophils % 0.1 Nucleated Red Blood Cells % 0.0 Immature Granulocytes # 0.030 Neutrophils # 5.5 Lymphocytes # 1.0 Monocytes # 0.6 Eosinophils # 0.0 Basophils # 0.0 Nucleated Red Blood Cells # 0.0 Sodium Level 135 Potassium Level 3.5 Chloride Level 101 Carbon Dioxide Level 28 Anion Gap 6 Blood Urea Nitrogen 9 Creatinine 0.60 Est Glomerular Filtrat Rate mL/min Glucose Level 99 Calcium Level 8.6 Phosphorus Level 2.9 Magnesium Level 2.0 Medications Medication Current Medications Tramadol HCl (Ultram) 50 mg Q4H PRN PO .PAIN 1-5; Start 12/14/18 at 12:00 Tramadol HCl (Ultram) 100 mg Q4H PRN PO .PAIN 6-10 Last administered on 12/14/18at 23:21; Admin Dose 100 MG; Start 12/14/18 at 12:00 Ondansetron HCl (Zofran Inj) 4 mg Q6H PRN IV NAUSEA/VOMITING Last administered on 12/15/18at 13:55; Admin Dose 4 MG; Start 12/14/18 at 12:00 Bisacodyl (Dulcolax Supp) 10 mg DAILY PRN [place] .CONSTIPATION; Start 12/14/18 at 12:00 Docusate Sodium (Colace) 100 mg BID PO Last administered on 12/15/18at 20:27; Admin Dose 100 MG; Start 12/14/18 at 21:00 Al Hydrox/Mg Hydrox/Simethicone (Mag-Al Plus) 15 ml Q6H PRN PO .CONSTIPATION/DYSPEPSIA; Start 12/14/18 at 12:00 Acetaminophen (Tylenol Tab) 650 mg Q4H PRN PO CRAWFORD OR TEMP GREATER THAN 101.3F Last administered on 12/16/18at 07:38; Admin Dose 650 MG; Start 12/14/18 at 12:00 Phenol (Cepastat Lozenge) 1 lozenge PRN PRN [place] .SORE THROAT; Start 12/14/18 at 12:00 Diphenhydramine HCl (Benadryl) 25 mg Q6H PRN PO .ITCHING; Start 12/14/18 at 12:00 Diphenhydramine HCl (Benadryl) 25 mg Q6H PRN IV .ITCHING; Start 12/14/18 at 12:00 Naloxone HCl (Narcan) 0.2 mg Q2M PRN IV .RR 8 BREATHS/MIN OR LESS; Start 12/14/18 at 12:00 Atorvastatin Calcium (Lipitor) 10 mg QHS PO Last administered on 12/15/18at 20:27; Admin Dose 10 MG; Start 12/14/18 at 21:00 Lorazepam (Ativan) 1 mg BID PRN PO ANXIETY Last administered on 12/15/18 21:16; Admin Dose 1 MG; Start 12/14/18 at 18:00 Propranolol HCl (Inderal) 20 mg BID PO Last administered on 12/15/18 20:26; Admin Dose 20 MG; Start 12/14/18 at 21:00 Pantoprazole (Protonix Iv) 40 mg BID@06,18 IV Last administered on 12/16/18 05:26; Admin Dose 40 MG; Start 12/15/18 at 08:30 Sodium Chloride 1,000 ml @ 100 mls/hr Q10H IV Last administered on 12/15/18 21:17; Admin Dose 100 MLS/HR; Start 12/15/18 at 08:30 Metoclopramide HCl (Reglan) 10 mg Q6H PRN IV NAUSEA Last administered on 12/16/18 07:39; Admin Dose 10 MG; Start 12/15/18 at 15:35 Meperidine HCl (Demerol) 25 mg Q4H PRN IM SEVERE PAIN LEVEL 7-10; Start 12/15/18 at 16:59 Meperidine HCl (Demerol) 12.5 mg Q4H PRN IM MODERATE PAIN 4-6 Last administered on 12/16/18 05:29; Admin Dose 12.5 MG; Start 12/15/18 at 18:00 Acetaminophen/ Butalbital/ Caffeine (Fioricet) 1 tab Q4H PRN PO PAIN; Start 12/16/18 at 08:00 LATRELL HARRELL MD Dec 16, 2018 08:08
[2018-12-16] MEDS: PROPRANOLOL 20 MG TAB PO SCH ×2 (08:52→20:54)
[2018-12-16] MEDS: DOCUSATE SODIUM 100 MG CAP PO SCH ×2 (08:58→20:56)
[2018-12-16] MEDS: ACET/BUTAL/CAFF TAB PO PRN ×2 (14:43→18:31)
[2018-12-16 15:35] VITALS: BP 139/72; PULSE 82; RESP 18
[2018-12-16 20:05] VITALS: BP 147/69; PULSE 81; RESP 18
[2018-12-16] MEDS: ATORVASTATIN 10 MG TAB PO SCH (20:53)
[2018-12-16] MEDS: LORAZEPAM 1 MG TAB PO PRN (23:07)
[2018-12-17] MEDS: ACETAMINOPHEN 325 MG TAB PO PRN ×4 (00:24→21:47)
[2018-12-17] MEDS: ACET/BUTAL/CAFF TAB PO PRN ×3 (00:24→17:45)
[2018-12-17] MEDS: SOD CHLORIDE 0.9% 1,000 ML IV SCH ×2 (01:53→09:48)
[2018-12-17 02:10] VITALS: BP 128/77; PULSE 87; RESP 20
[2018-12-17] MEDS: MEPERIDINE 50 MG INJ IM PRN ×4 (04:07→15:59)
[2018-12-17] MEDS: METOCLOPRAMIDE 10 MG INJ IV PRN (04:10)
[2018-12-17] MEDS: PANTOPRAZOLE 40 MG INJ IV SCH (05:26)
[2018-12-17] MEDS: PROPRANOLOL 20 MG TAB PO SCH ×2 (08:12→21:44)
[2018-12-17] MEDS: DOCUSATE SODIUM 100 MG CAP PO SCH ×2 (08:20→21:43)
[2018-12-17] MEDS ORDERED: POTASSIUM CHLORIDE (SR) 10 MEQ TAB PO ONE (08:30)
--- NOTE | 2018-12-17 08:32 | CONS ---
Assessment/Plan Assessment/Plan Assessment/Plan (Daily) 1. Post op right leg radic pain, MRI noted, await ortho comments 2. N and V have resolved 3. Hx CRAWFORD, quiescent Consultation Date/Type/Reason Admit Date/Time Dec 16, 2018 at 12:08 Initial Consult Date Date/Time of Note DATE: 12/17/18 TIME: 08:30 Detailed Summary Respiratory: No cough, No shortness of breath Cardiovascular: No chest pain Gastrointestinal: No nausea, No vomiting Genitourinary: no complaints Musculoskeletal: back pain (mild but has inc right leg radic pain) Exam/Review of Systems Exam Vitals Vital Signs Date Temp Pulse Resp B/P (MAP) Pulse Ox O2 O2 Flow FiO2 Time Delivery Rate 12/17/18 98.7 87 20 128/77 96 Room Air 02:10 (94) 12/14/18 2.0 17:36 Intake and Output 12/16/18 12/16/18 12/17/18 1515:00 23:00 07:00 IntakeIntake Total 325 ml 725 ml BalanceBalance 325 ml 725 ml Neck: No jvd Respiratory: clear to auscultation Cardiovascular: regular rate and rhythm Gastrointestinal: soft Extremities: No edema Neurological: No focal weakness Results Result Diagram: 12/17/18 0506 12/17/18 0506 Results 24hrs Laboratory Tests Test 12/17/18 05:06 White Blood Count 6.8 Red Blood Count 3.32 L Hemoglobin 10.8 L Hematocrit 32.3 L Mean Corpuscular Volume 97.3 Mean Corpuscular Hemoglobin 32.5 Mean Corpuscular Hemoglobin Concent 33.4 Red Cell Distribution Width 12.6 Platelet Count 132 L Mean Platelet Volume 11.5 H Immature Granulocytes % 0.700 H Neutrophils % 73.1 Lymphocytes % 14.9 L Monocytes % 10.6 Eosinophils % 0.4 Basophils % 0.3 Nucleated Red Blood Cells % 0.0 Immature Granulocytes # 0.050 H Neutrophils # 5.0 Lymphocytes # 1.0 Monocytes # 0.7 Eosinophils # 0.0 Basophils # 0.0 Nucleated Red Blood Cells # 0.0 Sodium Level 139 Potassium Level 3.5 Chloride Level 105 Carbon Dioxide Level 26 Anion Gap 8 Blood Urea Nitrogen 12 Creatinine 0.57 Est Glomerular Filtrat Rate mL/min Glucose Level 81 Calcium Level 8.7 Phosphorus Level 2.5 Magnesium Level 1.7 Total Bilirubin 0.4 Direct Bilirubin 0.00 Indirect Bilirubin 0.4 Aspartate Amino Transf (AST/SGOT) 34 Alanine Aminotransferase (ALT/SGPT) 31 Alkaline Phosphatase 74 Total Protein 5.7 L Albumin 3.1 L Globulin 2.60 Albumin/Globulin Ratio 1.19 Medications Medication Current Medications Tramadol HCl (Ultram) 50 mg Q4H PRN PO .PAIN 1-5; Start 12/14/18 at 12:00 Tramadol HCl (Ultram) 100 mg Q4H PRN PO .PAIN 6-10 Last administered on 12/14/18at 23:21; Admin Dose 100 MG; Start 12/14/18 at 12:00 Ondansetron HCl (Zofran Inj) 4 mg Q6H PRN IV NAUSEA/VOMITING Last administered on 12/15/18at 13:55; Admin Dose 4 MG; Start 12/14/18 at 12:00 Bisacodyl (Dulcolax Supp) 10 mg DAILY PRN [place] .CONSTIPATION; Start 12/14/18 at 12:00 Docusate Sodium (Colace) 100 mg BID PO Last administered on 12/15/18at 20:27; Admin Dose 100 MG; Start 12/14/18 at 21:00 Al Hydrox/Mg Hydrox/Simethicone (Mag-Al Plus) 15 ml Q6H PRN PO .C ONSTIPATION/DYSPEPSIA; Start 12/14/18 at 12:00 Acetaminophen (Tylenol Tab) 650 mg Q4H PRN PO CRAWFORD OR TEMP GREATER THAN 101.3F Last administered on 12/17/18at 07:23; Admin Dose 650 MG; Start 12/14/18 at 12:00 Phenol (Cepastat Lozenge) 1 lozenge PRN PRN [place] .SORE THROAT; Start 12/14/18 at 12:00 Diphenhydramine HCl (Benadryl) 25 mg Q6H PRN PO .ITCHING; Start 12/14/18 at 12:00 Diphenhydramine HCl (Benadryl) 25 mg Q6H PRN IV .ITCHING; Start 12/14/18 at 12:00 Naloxone HCl (Narcan) 0.2 mg Q2M PRN IV .RR 8 BREATHS/MIN OR LESS; Start 12/14/18 at 12:00 Atorvastatin Calcium (Lipitor) 10 mg QHS PO Last administered on 12/16/18 20:53; Admin Dose 10 MG; Start 12/14/18 at 21:00 Lorazepam (Ativan) 1 mg BID PRN PO ANXIETY Last administered on 12/16/18 23:07; Admin Dose 1 MG; Start 12/14/18 at 18:00 Propranolol HCl (Inderal) 20 mg BID PO Last administered on 12/17/18 08:12; Admin Dose 20 MG; Start 12/14/18 at 21:00 Pantoprazole (Protonix Iv) 40 mg BID@06,18 IV Last administered on 12/17/18 05:26; Admin Dose 40 MG; Start 12/15/18 at 08:30 Sodium Chloride 1,000 ml @ 100 mls/hr Q10H IV Last administered on 12/16/18 14:57; Admin Dose 100 MLS/HR; Start 12/15/18 at 08:30 Metoclopramide HCl (Reglan) 10 mg Q6H PRN IV NAUSEA Last administered on 12/17/18 04:10; Admin Dose 10 MG; Start 12/15/18 at 15:35 Meperidine HCl (Demerol) 25 mg Q4H PRN IM SEVERE PAIN LEVEL 7-10 Last administered on 12/17/18 08:12; Admin Dose 25 MG; Start 12/15/18 at 16:59 Meperidine HCl (Demerol) 12.5 mg Q4H PRN IM MODERATE PAIN 4-6 Last administered on 12/16/18 21:45; Admin Dose 12.5 MG; Start 12/15/18 at 18:00 Acetaminophen/ Butalbital/ Caffeine (Fioricet) 1 tab Q4H PRN PO PAIN Last administered on 12/17/18 07:23; Admin Dose 1 TAB; Start 12/16/18 at 08:00 LATRELL HARRELL MD Dec 17, 2018 08:32
[2018-12-17 08:45] VITALS: BP 140/64; PULSE 69; RESP 18
--- NOTE | 2018-12-17 17:03 | PN ---
Date/Time of Note Date/Time of Note DATE: 12/17/18 TIME: 17:00 Assessment/Plan Lines/Catheters IV Catheter Type (from Nrsg): Peripheral IV Barr in Place (from Nrsg): No Assessment/Plan Assessment/Plan The patient continues to have severe right leg pain. I reviewed an MRI. I do not see any significant stenosis. There is a concern for a foreign body versus air. The only foreign body that could be there would either be Surgifoam or a piece of bone wax. This was discussed with the patient. The patient has no urinary issues and no focal weakness in the right lower extremity and therefore there is no urgency to take her to the operating room although this was offered to her for tomorrow to explore the area. She is decided to see how she does over the next couple of days as she has had mild improvement today. If in the next 48 hours there is no continued improvement in her right leg pain I will take her to surgery either Thursday or Thursday and explore the L4-5 region. I will advance her diet since her nausea has resolved. Subjective 24 Hr Interval Summary Complains of right leg pain. Was able to get up with physical therapy. Exam/Review of Systems Vital Signs Vitals Vital Signs Date Temp Pulse Resp B/P (MAP) Pulse Ox O2 O2 Flow FiO2 Time Delivery Rate 12/17/18 97.3 69 18 140/64 95 Room Air 08:45 (89) 12/14/18 2.0 17:36 Intake and Output 12/16/18 12/16/18 12/17/18 1414:59 22:59 06:59 IntakeIntake Total 325 ml 725 ml BalanceBalance 325 ml 725 ml Exam Free Text/Dictation Patient has good strength in the right distal leg. Results Result Diagram: 12/17/18 0506 12/17/18 0506 KIERA LOGAN MD Dec 17, 2018 17:03
[2018-12-17] MEDS: PANTOPRAZOLE (EC) 40 MG TAB PO SCH (17:44)
[2018-12-17] MEDS ORDERED: MAGNESIUM SULFATE 2 GM/50 ML 50 ML IVPB ONE (18:30)
[2018-12-17] MEDS ORDERED: MEPERIDINE 50 MG INJ IV ONE (18:30)
[2018-12-17] MEDS: MEPERIDINE 50 MG INJ IV PRN (20:01)
[2018-12-17 21:00] VITALS: BP 181/79; PULSE 68; RESP 18
[2018-12-17] MEDS: ATORVASTATIN 10 MG TAB PO SCH (21:43)
[2018-12-17] MEDS: traMADol 50 MG TAB PO PRN (21:47)
[2018-12-17] MEDS ORDERED: MEPERIDINE 50 MG INJ IV PRN (22:00)
[2018-12-18] MEDS: MEPERIDINE 50 MG INJ IV PRN ×4 (00:01→21:28)
[2018-12-18] MEDS: LORAZEPAM 1 MG TAB PO PRN ×2 (01:14→23:08)
[2018-12-18 01:55] VITALS: BP 151/74; PULSE 57; RESP 18
[2018-12-18] MEDS: traMADol 50 MG TAB PO PRN ×3 (03:31→15:43)
[2018-12-18] MEDS: ACETAMINOPHEN 325 MG TAB PO PRN ×3 (03:31→15:43)
[2018-12-18 08:15] VITALS: BP 130/65; PULSE 68; RESP 18
[2018-12-18] MEDS: DOCUSATE SODIUM 100 MG CAP PO SCH ×2 (08:33→21:09)
[2018-12-18] MEDS: PANTOPRAZOLE (EC) 40 MG TAB PO SCH ×2 (08:33→18:32)
[2018-12-18] MEDS: PROPRANOLOL 20 MG TAB PO SCH ×2 (08:34→21:09)
--- NOTE | 2018-12-18 10:30 | PN ---
Date/Time of Note Date/Time of Note DATE: 12/18/18 TIME: 10:29 Assessment/Plan Lines/Catheters IV Catheter Type (from Nrsg): Peripheral IV Barr in Place (from Nrsg): No Assessment/Plan Assessment/Plan Continue current plan. We will reassess her leg pain tomorrow. Continue with physical therapy. Subjective 24 Hr Interval Summary Improving right leg pain but pain still present. Exam/Review of Systems Vital Signs Vitals Vital Signs Date Temp Pulse Resp B/P (MAP) Pulse Ox O2 O2 Flow FiO2 Time Delivery Rate 12/18/18 98.4 68 18 130/65 95 Room Air 08:15 (86) 12/14/18 2.0 17:36 Intake and Output 12/17/18 12/17/18 12/18/18 1515:00 23:00 07:00 IntakeIntake Total 600 ml 920 ml 550 ml BalanceBalance 600 ml 920 ml 550 ml Exam Free Text/Dictation Neuro unchanged Results Result Diagram: 12/17/18 0506 12/17/18 0506 KIERA LOGAN MD Dec 18, 2018 10:30
--- NOTE | 2018-12-18 12:10 | CONS ---
Assessment/Plan Assessment/Plan Assessment/Plan (Daily) 1. Post op lumbar back surg with now less radic pain, rev with ortho yesterday. 2. No rec of n and v 3. Labs rev Consultation Date/Type/Reason Admit Date/Time Dec 16, 2018 at 12:08 Initial Consult Date Date/Time of Note DATE: 12/18/18 TIME: 12:08 Detailed Summary Respiratory: No cough, No shortness of breath Cardiovascular: No chest pain Gastrointestinal: no complaints Genitourinary: no complaints Neurologic: other (right leg radic pain is overall better, one episode of severe pain) Exam/Review of Systems Exam Vitals Vital Signs Date Temp Pulse Resp B/P (MAP) Pulse Ox O2 O2 Flow FiO2 Time Delivery Rate 12/18/18 98.4 68 18 130/65 95 Room Air 08:15 (86) 12/14/18 2.0 17:36 Intake and Output 12/17/18 12/17/18 12/18/18 1414:59 22:59 06:59 IntakeIntake Total 600 ml 920 ml 550 ml BalanceBalance 600 ml 920 ml 550 ml Neck: No jvd Respiratory: clear to auscultation Cardiovascular: regular rate and rhythm Gastrointestinal: soft Extremities: No edema, No tenderness Results Result Diagram: 12/17/18 0506 12/17/18 0506 Medications Medication Current Medications Tramadol HCl (Ultram) 50 mg Q4H PRN PO .PAIN 1-5; Start 12/14/18 at 12:00 Tramadol HCl (Ultram) 100 mg Q4H PRN PO .PAIN 6-10 Last administered on 12/18/18at 10:54; Admin Dose 100 MG; Start 12/14/18 at 12:00 Ondansetron HCl (Zofran Inj) 4 mg Q6H PRN IV NAUSEA/VOMITING Last administered on 12/15/18at 13:55; Admin Dose 4 MG; Start 12/14/18 at 12:00 Bisacodyl (Dulcolax Supp) 10 mg DAILY PRN [place] .CONSTIPATION; Start 12/14/18 at 12:00 Docusate Sodium (Colace) 100 mg BID PO Last administered on 12/18/18at 08:33; Admin Dose 100 MG; Start 12/14/18 at 21:00 Al Hydrox/Mg Hydrox/Simethicone (Mag-Al Plus) 15 ml Q6H PRN PO .CONSTIPATION/DYSPEPSIA; Start 12/14/18 at 12:00 Acetaminophen (Tylenol Tab) 650 mg Q4H PRN PO CRAWFORD OR TEMP GREATER THAN 101.3F Last administered on 12/18/18 10:54; Admin Dose 650 MG; Start 12/14/18 at 12:00 Phenol (Cepastat Lozenge) 1 lozenge PRN PRN [place] .SORE THROAT; Start 12/14/18 at 12:00 Diphenhydramine HCl (Benadryl) 25 mg Q6H PRN PO .ITCHING; Start 12/14/18 at 12:00 Diphenhydramine HCl (Benadryl) 25 mg Q6H PRN IV .ITCHING; Start 12/14/18 at 12:00 Naloxone HCl (Narcan) 0.2 mg Q2M PRN IV .RR 8 BREATHS/MIN OR LESS; Start 12/14/18 at 12:00 Atorvastatin Calcium (Lipitor) 10 mg QHS PO Last administered on 12/17/18 21:43; Admin Dose 10 MG; Start 12/14/18 at 21:00 Lorazepam (Ativan) 1 mg BID PRN PO ANXIETY Last administered on 12/18/18 01:14; Admin Dose 1 MG; Start 12/14/18 at 18:00 Propranolol HCl (Inderal) 20 mg BID PO Last administered on 12/18/18 08:34; Admin Dose 20 MG; Start 12/14/18 at 21:00 Sodium Chloride 1,000 ml @ 30 mls/hr Q24H IV Last administered on 12/17/18 09:48; Admin Dose 30 MLS/HR; Start 12/15/18 at 08:30 Metoclopramide HCl (Reglan) 10 mg Q6H PRN IV NAUSEA Last administered on 12/17/18 04:10; Admin Dose 10 MG; Start 12/15/18 at 15:35 Acetaminophen/ Butalbital/ Caffeine (Fioricet) 1 tab Q4H PRN PO PAIN Last adm inistered on 12/17/18 17:45; Admin Dose 1 TAB; Start 12/16/18 at 08:00 Pantoprazole (Protonix Tab) 40 mg BID@06,18 PO Last administered on 12/18/18 08:33; Admin Dose 40 MG; Start 12/17/18 at 18:00 Meperidine HCl (Demerol) 12.5 mg Q4H PRN IV MODERATE PAIN 4-6; Start 12/17/18 at 22:00 Meperidine HCl (Demerol) 25 mg Q4H PRN IV SEVERE PAIN LEVEL 7-10 Last administered on 12/18/18 08:33; Admin Dose 25 MG; Start 12/17/18 at 20:00 LATRELL HARRELL MD Dec 18, 2018 12:10
[2018-12-18 14:00] VITALS: BP 151/81; PULSE 64; RESP 18
[2018-12-18] MEDS: SOD CHLORIDE 0.9% 1,000 ML IV SCH (14:27)
[2018-12-18 19:58] VITALS: BP 161/77; PULSE 62; RESP 18
[2018-12-18] MEDS: ATORVASTATIN 10 MG TAB PO SCH (21:08)
[2018-12-19] MEDS: ACETAMINOPHEN 325 MG TAB PO PRN ×5 (00:10→22:28)
[2018-12-19] MEDS: traMADol 50 MG TAB PO PRN ×5 (00:15→22:29)
[2018-12-19] MEDS: PANTOPRAZOLE (EC) 40 MG TAB PO SCH ×2 (06:50→18:19)
[2018-12-19] MEDS: MEPERIDINE 50 MG INJ IV PRN (06:56)
[2018-12-19 08:30] VITALS: BP 148/77; PULSE 73; RESP 18
[2018-12-19] MEDS: DOCUSATE SODIUM 100 MG CAP PO SCH ×2 (09:23→20:51)
[2018-12-19] MEDS: PROPRANOLOL 20 MG TAB PO SCH ×2 (09:24→20:51)
[2018-12-19] MEDS ORDERED: LACTULOSE 30ML CUP PO PRN (13:30)
--- NOTE | 2018-12-19 13:40 | CONS ---
Assessment/Plan Assessment/Plan Assessment/Plan (Daily) 1. Improved right leg radic sxs post op lumbar back surg 2. Hypomag again, ? cause, will replete 3. BP sl inc, will observe 4. Wbc a bit lower will repeat, meds rev Consultation Date/Type/Reason Admit Date/Time Dec 16, 2018 at 12:08 Initial Consult Date Date/Time of Note DATE: 12/19/18 TIME: 13:38 Detailed Summary Respiratory: No cough, No shortness of breath Cardiovascular: No edema, No lightheadedness, No orthopenea Gastrointestinal: constipation Neurologic: other (she had 1 episode of mod severe right leg radic pain earlier) Exam/Review of Systems Exam Vitals Vital Signs Date Temp Pulse Resp B/P (MAP) Pulse Ox O2 O2 Flow FiO2 Time Delivery Rate 12/19/18 97.9 73 18 148/77 97 Room Air 08:30 (100) Intake and Output 12/18/18 12/18/18 12/19/18 1515:00 23:00 07:00 IntakeIntake Total 260 ml 1685 ml 120 ml BalanceBalance 260 ml 1685 ml 120 ml Neck: No jvd Respiratory: No crackles/rales Cardiovascular: regular rate and rhythm; No edema Gastrointestinal: soft Extremities: No edema, No tenderness Results Result Diagram: 12/19/18 0503 12/19/18 0503 Results 24hrs Laboratory Tests Test 12/19/18 05:03 White Blood Count 4.5 #L Red Blood Count 3.19 L Hemoglobin 10.7 L Hematocrit 31.3 L Mean Corpuscular Volume 98.1 Mean Corpuscular Hemoglobin 33.5 H Mean Corpuscular Hemoglobin Concent 34.2 Red Cell Distribution Width 12.3 Platelet Count 150 Mean Platelet Volume 10.6 H Immature Granulocytes % 0.700 H Neutrophils % 65.0 Lymphocytes % 22.6 Monocytes % 7.2 Eosinophils % 3.8 Basophils % 0.7 Nucleated Red Blood Cells % 0.0 Immature Granulocytes # 0.030 Neutrophils # 2.9 Lymphocytes # 1.0 Monocytes # 0.3 Eosinophils # 0.2 Basophils # 0.0 Nucleated Red Blood Cells # 0.0 Sodium Level 137 Potassium Level 3.6 Chloride Level 101 Carbon Dioxide Level 29 Anion Gap 7 Blood Urea Nitrogen 9 Creatinine 0.56 Est Glomerular Filtrat Rate mL/min Glucose Level 91 Calcium Level 8.9 Phosphorus Level 3.3 Magnesium Level 1.5 L Medications Medication Current Medications Tramadol HCl (Ultram) 50 mg Q4H PRN PO .PAIN 1-5; Start 12/14/18 at 12:00 Tramadol HCl (Ultram) 100 mg Q4H PRN PO .PAIN 6-10 Last administered on 12/19/18 09:23; Admin Dose 100 MG; Start 12/14/18 at 12:00 Ondansetron HCl (Zofran Inj) 4 mg Q6H PRN IV NAUSEA/VOMITING Last administered on 12/15/18 13:55; Admin Dose 4 MG; Start 12/14/18 at 12:00 Bisacodyl (Dulcolax Supp) 10 mg DAILY PRN [place] .CONSTIPATION Last administered on 12/19/18 09:28; Admin Dose 10 MG; Start 12/14/18 at 12:00 Docusate Sodium (Colace) 100 mg BID PO Last administered on 12/19/18 09:23; Admin Dose 100 MG; Start 12/14/18 at 21:00 Al Hydrox/Mg Hydrox/Simethicone (Mag-Al Plus) 15 ml Q6H PRN PO .CONSTIPATION/DYSPEPSIA; Start 12/14/18 at 12:00 Acetaminophen (Tylenol Tab) 650 mg Q4H PRN PO CRAWFORD OR TEMP GREATER THAN 101.3F Last administered on 12/19/18 09:27; Admin Dose 650 MG; Start 12/14/18 at 12:00 Phenol (Cepastat Lozenge) 1 lozenge PRN PRN [place] .SORE THROAT; Start 12/14/18 at 12:00 Diphenhydramine HCl (Benadryl) 25 mg Q6H PRN PO .ITCHING; Start 12/14/18 at 12:00 Diphenhydramine HCl (Benadryl) 25 mg Q6H PRN IV .ITCHING; Start 12/14/18 at 12:00 Naloxone HCl (Narcan) 0.2 mg Q2M PRN IV .RR 8 BREATHS/MIN OR LESS; Start 12/14/18 at 12:00 Atorvastatin Calcium (Lipitor) 10 mg QHS PO Last administered on 12/18/18 21:0 8; Admin Dose 10 MG; Start 12/14/18 at 21:00 Lorazepam (Ativan) 1 mg BID PRN PO ANXIETY Last administered on 12/18/18 23:08; Admin Dose 1 MG; Start 12/14/18 at 18:00 Propranolol HCl (Inderal) 20 mg BID PO Last administered on 12/19/18 09:24; Admin Dose 20 MG; Start 12/14/18 at 21:00 Metoclopramide HCl (Reglan) 10 mg Q6H PRN IV NAUSEA Last administered on 12/17/18 04:10; Admin Dose 10 MG; Start 12/15/18 at 15:35 Acetaminophen/ Butalbital/ Caffeine (Fioricet) 1 tab Q4H PRN PO PAIN Last administered on 12/17/18 17:45; Admin Dose 1 TAB; Start 12/16/18 at 08:00 Pantoprazole (Protonix Tab) 40 mg BID@06,18 PO Last administered on 12/19/18 06:50; Admin Dose 40 MG; Start 12/17/18 at 18:00 Meperidine HCl (Demerol) 12.5 mg Q4H PRN IV MODERATE PAIN 4-6; Start 12/17/18 at 22:00 Meperidine HCl (Demerol) 25 mg Q4H PRN IV SEVERE PAIN LEVEL 7-10 Last administered on 12/19/18 06:56; Admin Dose 25 MG; Start 12/17/18 at 20:00 Lactulose (Enulose) 20 gm ONCE PRN PO CONSTIPATION; Start 12/19/18 at 13:30; Stop 12/19/18 at 23:45 LATRELL HARRELL MD Dec 19, 2018 13:40
--- NOTE | 2018-12-19 13:55 | PN ---
Date/Time of Note Date/Time of Note DATE: 12/19/18 TIME: 13:53 Assessment/Plan Lines/Catheters IV Catheter Type (from Nrsg): Saline Lock Barr in Place (from Nrsg): No Assessment/Plan Assessment/Plan Patient's right leg pain has been improving. We will continue to observe. If she continues to improve she may be ready for discharge tomorrow. Monitor electrolytes. Subjective 24 Hr Interval Summary Improved right leg pain Exam/Review of Systems Vital Signs Vitals Vital Signs Date Temp Pulse Resp B/P (MAP) Pulse Ox O2 O2 Flow FiO2 Time Delivery Rate 12/19/18 97.9 73 18 148/77 97 Room Air 08:30 (100) Intake and Output 12/18/18 12/18/18 12/19/18 1515:00 23:00 07:00 IntakeIntake Total 260 ml 1685 ml 120 ml BalanceBalance 260 ml 1685 ml 120 ml Exam Free Text/Dictation Neuro intact Results Result Diagram: 12/19/18 0503 12/19/18 0503 KIERA LOGAN MD Dec 19, 2018 13:55
[2018-12-19 14:20] VITALS: BP 138/75; PULSE 74; RESP 18
[2018-12-19] MEDS ORDERED: MAGNESIUM SULFATE 3 GM in DEXTROSE 5% 100 ML IVPB ONE (15:00)
[2018-12-19 20:08] VITALS: BP 138/87; PULSE 73; RESP 18
[2018-12-19] MEDS: ATORVASTATIN 10 MG TAB PO SCH (20:51)
[2018-12-19] MEDS: METOCLOPRAMIDE 10 MG INJ IV PRN (22:33)
[2018-12-20] MEDS: LORAZEPAM 1 MG TAB PO PRN ×2 (00:27→16:39)
[2018-12-20 02:30] VITALS: BP 148/77; PULSE 65; RESP 18
[2018-12-20] MEDS: PANTOPRAZOLE (EC) 40 MG TAB PO SCH (06:00)
[2018-12-20 08:09] VITALS: BP 152/76; PULSE 80; RESP 17
[2018-12-20] MEDS: DOCUSATE SODIUM 100 MG CAP PO SCH (08:37)
[2018-12-20] MEDS: PROPRANOLOL 20 MG TAB PO SCH (08:37)
[2018-12-20] MEDS ORDERED: NA PHOSPHATE/BIPHOS 133 ML ENEMA PR ONE (09:00)
--- NOTE | 2018-12-20 09:50 | CONS ---
Assessment/Plan Assessment/Plan Assessment/Plan (Daily) 1. Post op lumbar back surgery with much improved radic right leg pain 2. Hypokalemia, will replete 3. Constipation addressed 4. Can dc if ok with ortho Consultation Date/Type/Reason Admit Date/Time Dec 16, 2018 at 12:08 Initial Consult Date Date/Time of Note DATE: 12/20/18 TIME: 09:48 Detailed Summary Respiratory: No cough, No shortness of breath Cardiovascular: No chest pain Gastrointestinal: constipation Genitourinary: no complaints Musculoskeletal: other (mild discomfort right leg) Exam/Review of Systems Exam Vitals Vital Signs Date Temp Pulse Resp B/P (MAP) Pulse Ox O2 O2 Flow FiO2 Time Delivery Rate 12/20/18 98.2 80 17 152/76 98 Room Air 08:09 (101) Intake and Output 12/19/18 12/19/18 12/20/18 1414:59 22:59 06:59 IntakeIntake Total 706 ml 400 ml BalanceBalance 706 ml 400 ml Neck: No jvd Respiratory: clear to auscultation Cardiovascular: regular rate and rhythm Gastrointestinal: soft Extremities: No edema, No tenderness Results Result Diagram: 12/20/18 0501 12/20/18 0501 Results 24hrs Laboratory Tests Test 12/20/18 05:01 White Blood Count 5.0 Red Blood Count 3.47 L Hemoglobin 11.5 L Hematocrit 32.9 L Mean Corpuscular Volume 94.8 Mean Corpuscular Hemoglobin 33.1 H Mean Corpuscular Hemoglobin Concent 35.0 Red Cell Distribution Width 12.0 Platelet Count 175 Mean Platelet Volume 10.6 H Immature Granulocytes % 0.600 H Neutrophils % 69.3 Lymphocytes % 19.7 Monocytes % 7.8 Eosinophils % 2.0 Basophils % 0.6 Nucleated Red Blood Cells % 0.0 Immature Granulocytes # 0.030 Neutrophils # 3.5 Lymphocytes # 1.0 Monocytes # 0.4 Eosinophils # 0.1 Basophils # 0.0 Nucleated Red Blood Cells # 0.0 Sodium Level 136 Potassium Level 3.4 L Chloride Level 97 Carbon Dioxide Level 30 Anion Gap 9 Blood Urea Nitrogen 8 Creatinine 0.48 Est Glomerular Filtrat Rate mL/min Glucose Level 113 Calcium Level 9.0 Phosphorus Level 3.6 Magnesium Level 1.7 Medications Medication Current Medications Tramadol HCl (Ultram) 50 mg Q4H PRN PO .PAIN 1-5; Start 12/14/18 at 12:00 Tramadol HCl (Ultram) 100 mg Q4H PRN PO .PAIN 6-10 Last administered on 12/19/18 22:29; Admin Dose 100 MG; Start 12/14/18 at 12:00 Ondansetron HCl (Zofran Inj) 4 mg Q6H PRN IV NAUSEA/VOMITING Last administered on 12/15/18 13:55; Admin Dose 4 MG; Start 12/14/18 at 12:00 Bisacodyl (Dulcolax Supp) 10 mg DAILY PRN [place] .CONSTIPATION Last administered on 12/19/18 09:28; Admin Dose 10 MG; Start 12/14/18 at 12:00 Docusate Sodium (Colace) 100 mg BID PO Last administered on 12/20/18 08:37; Admin Dose 100 MG; Start 12/14/18 at 21:00 Al Hydrox/Mg Hydrox/Simethicone (Mag-Al Plus) 15 ml Q6H PRN PO .CONSTIPATION/DYSPEPSIA; Start 12/14/18 at 12:00 Acetaminophen (Tylenol Tab) 650 mg Q4H PRN PO CRAWFORD OR TEMP GREATER THAN 101.3F Last administered on 12/19/18 22:28; Admin Dose 650 MG; Start 12/14/18 at 12:00 Phenol (Cepastat Lozenge) 1 lozenge PRN PRN [place] .SORE THROAT; Start 12/14/18 at 12:00 Diphenhydramine HCl (Benadryl) 25 mg Q6H PRN PO .ITCHING; Start 12/14/18 at 1 2:00 Diphenhydramine HCl (Benadryl) 25 mg Q6H PRN IV .ITCHING; Start 12/14/18 at 12:00 Naloxone HCl (Narcan) 0.2 mg Q2M PRN IV .RR 8 BREATHS/MIN OR LESS; Start 12/14/18 at 12:00 Atorvastatin Calcium (Lipitor) 10 mg QHS PO Last administered on 12/19/18 20:51; Admin Dose 10 MG; Start 12/14/18 at 21:00 Lorazepam (Ativan) 1 mg BID PRN PO ANXIETY Last administered on 12/20/18 00:27; Admin Dose 1 MG; Start 12/14/18 at 18:00 Propranolol HCl (Inderal) 20 mg BID PO Last administered on 12/20/18 08:37; Admin Dose 20 MG; Start 12/14/18 at 21:00 Metoclopramide HCl (Reglan) 10 mg Q6H PRN IV NAUSEA Last administered on 12/19/18 22:33; Admin Dose 10 MG; Start 12/15/18 at 15:35 Acetaminophen/ Butalbital/ Caffeine (Fioricet) 1 tab Q4H PRN PO PAIN Last administered on 12/17/18at 17:45; Admin Dose 1 TAB; Start 12/16/18 at 08:00 Pantoprazole (Protonix Tab) 40 mg BID@,18 PO Last administered on 12/19/18 18:19; Admin Dose 40 MG; Start 12/17/18 at 18:00 Meperidine HCl (Demerol) 12.5 mg Q4H PRN IV MODERATE PAIN 4-6; Start 12/17/18 at 22:00 Meperidine HCl (Demerol) 25 mg Q4H PRN IV SEVERE PAIN LEVEL 7-10 Last administered on 12/19/18 06:56; Admin Dose 25 MG; Start 12/17/18 at 20:00 LATRELL HARRELL MD Dec 20, 2018 09:50
[2018-12-20] MEDS ORDERED: POTASSIUM CHLORIDE (SR) 10 MEQ TAB PO ONE (10:00)
--- NOTE | 2018-12-20 12:41 | DS ---
Date/Time of Note Date/Time of Note DATE: 12/20/18 TIME: 12:40 Discharge Summary Admission/Discharge Info Admit Date/Time Dec 16, 2018 at 12:08 Discharge Date/Time December 20 Discharge Diagnosis Lumbar decompression Patient Condition: Good Procedures Lumbar decompression Hospital Course Patient was admitted to the [facility] after undergoing a lumbar decompression. She was having severe right-sided leg pain after the surgery which limited her ambulation required the prolonged hospital stay. She underwent a postoperative MRI and the findings were reviewed with the patient. We discussed the possibility of an exploration but given that her right leg symptoms improved we held off on this. By December 20 she was doing well and was deemed stable for discharge to follow-up arranged with the undersigned Home Meds Reported Medications Propranolol Hcl* (Propranolol Hcl*) 20 Mg Tablet, 20 MG PO BID, TAB 12/14/18 Jwrcgvvdtcbpz-Mslmyacdty-Fratgcle-Codeine* (Fioricet w/Codeine*) [id number] Cap, 1 CAP PO Q4H PRN for HEADACHE, CAP 12/14/18 Lorazepam* (Lorazepam*) 1 Mg Tablet, 1 MG PO DAILY PRN for ANXIETY, #30 TAB 12/14/18 Esomeprazole Mag Trihydrate (Nexium Packet) 10 Mg Suspdr.pkt, 10 MG PO DAILY, #30 PACKET 12/14/18 Atorvastatin Calcium (Atorvastatin Calcium) 10 Mg Tablet, 10 MG PO QHS, #30 TAB 12/14/18 Docusate Sodium* (Colace*) 100 Mg Capsule, 100 MG PO BID PRN for CONSTIPATION, #60 CAP 12/14/18 Discontinued Reported Medications Sennosides* (Senna Lax*) Unknown Strength Tablet, PO DAILY, TAB 12/13/18 Pvabpdqjpe-Hnhfdidvuiwep-Atcykfjk* (Fioricet*) 50-300-40 Mg Capsule, 1 CAP PO Q4H PRN for MIGRAINES, CAP 12/13/18 Esomeprazole Mag Trihydrate (Nexium) Unknown Strength Capsule.dr, PO DAILY, #30 CAP 12/13/18 Simvastatin* (Zocor*) 40 Mg Tablet, 40 MG PO DAILY 10/09/12 Ranitidine Hcl* (Zantac*) 300 Mg Tab, 300 MG PO BID 10/09/12 Propranolol Hcl* (Inderal*) 20 Mg Tab, 20 MG PO BID 10/09/12 Primary Care Provider Care Physician No Primary Pending Labs Laboratory Tests Test 12/20/18 05:01 White Blood Count 5.0 10^3/ul (4.8-10.8) Red Blood Count 3.47 10^6/ul (4.20-5.40) Hemoglobin 11.5 g/dl (12.0-16.0) Hematocrit 32.9 % (37.0-47.0) Mean Corpuscular Volume 94.8 fl (82.0-101.0) Mean Corpuscular Hemoglobin 33.1 pg (29.0-33.0) Mean Corpuscular Hemoglobin Concent 35.0 g/dl (32.0-37.0) Red Cell Distribution Width 12.0 % (11.5-14.5) Platelet Count 175 10^3/UL (140-415) Mean Platelet Volume 10.6 fl (7.4-10.4) Immature Granulocytes % 0.600 % (0.001-0.429) Neutrophils % 69.3 % (39.0-77.0) Lymphocytes % 19.7 % (15.0-51.0) Monocytes % 7.8 % (0.0-11.0) Eosinophils % 2.0 % (0.0-7.0) Basophils % 0.6 % (0.0-2.0) Nucleated Red Blood Cells % 0.0 /100WBC (0.0-0.0) Immature Granulocytes # 0.030 10^3/ul (0.0-0.031) Neutrophils # 3.5 10^3/ul (1.6-7.5) Lymphocytes # 1.0 10^3/ul (0.8-2.9) Monocytes # 0.4 10^3/ul (0.3-0.9) Eosinophils # 0.1 10^3/ul (0.0-0.5) Basophils # 0.0 10^3/ul (0.0-0.1) Nucleated Red Blood Cells # 0.0 10^3/ul (0.0-0.0) Sodium Level 136 mmol/L (135-144) Potassium Level 3.4 mmol/L (3.5-5.1) Chloride Level 97 mmol/L (97-110) Carbon Dioxide Level 30 mmol/L (21-31) Anion Gap 9 (5-13) Blood Urea Nitrogen 8 mg/dl (7-20) Creatinine 0.48 mg/dl (0.44-1.00) Est Glomerular Filtrat Rate mL/min mL/min (>60) Glucose Level 113 mg/dl (70-220) Calcium Level 9.0 mg/dl (8.4-10.2) Phosphorus Level 3.6 mg/dl (2.5-4.9) Magnesium Level 1.7 mg/dl (1.7-2.5) KIERA LOGAN MD Dec 20, 2018 12:41
[2018-12-20 14:34] VITALS: BP_SYST 176; BP_SYST 178; BP_DIAS 96; BP_DIAS 97; PULSE 80
[2018-12-20 15:45] VITALS: BP_SYST 174; BP_SYST 193; BP_DIAS 90; PULSE 72
[2018-12-20] MEDS ORDERED: AMLODIPINE 2.5 MG TAB PO ONE (16:00)
[2018-12-20] MEDS ORDERED: PROPRANOLOL 20 MG TAB PO ONE (17:00)
[2018-12-20 17:04] VITALS: BP 174/81; PULSE 69
== END 2018-12-20 18:20 | disposition home or self-care (01) | DRG 520 ==
LOC: REC 09:37 → INTOOBSV 09:37 → MS1 16:00 → OBSVTOIN 12-16 12:08
PROVIDERS: ADMIT Specialist; ATTEND Specialist
PROC: 0ST20ZZ Resection of Lumbar Vertebral Disc, Open Approach (ICD-10-PCS; 2018-12-14)
PROC: 01NB0ZZ Release Lumbar Nerve, Open Approach (ICD-10-PCS; principal; 2018-12-14 11:30)
DX: M51.16 Intervertebral disc disorders with radiculopathy, lumbar region (principal); M48.061 Spinal stenosis, lumbar region without neurogenic claudication; E83.42 Hypomagnesemia; M41.86 Other forms of scoliosis, lumbar region; M51.26 Other intervertebral disc displacement, lumbar region; E78.5 Hyperlipidemia, unspecified; R11.2 Nausea with vomiting, unspecified
CPT/HCPCS: 72110; 72158; 80048; 80053; 83735; 84100; 85025; 86999; 88304; 97110; 97116; 97163; 97530; 99217; C9113; G0378; J0360; J1100; J1170; J1644; J2175; J2250; J2405; J2765; J3010; J3370; J3475; J3480; J7030; J7120